=== PATIENT | female | born 1950 | race Caucasian/White ===

== ENCOUNTER → 2017-01-20 | Outpatient (CLI) | payer OTHER ==
[~2017-01-20] MED LIST: FAMOTIDINE20 MG PO; FOSAMAX PO; LEXAPRO PO; SYNTHROID PO; SYNTHROID0.05 MG PO; VOLTAREN75 MG PO
--- NOTE | ~2017-01-20 | BD1 ---
[facility] A Service of [facility] & [facility] RADIOLOGY TEXT RESULTS PATIENT: JOSE CARLOS TALAVERA LOCATION: [facility] : 46 UNIT #: [id number] AGE: [address]: Prince Brito MD SEX: F ORDER DR: [id number] [facility] [address] [place], [place] [address] [id number] O MR#: [id number] Acc #: [id number] NAME: JOSE CARLOS TALAVERA : 1950 SEX: F STUDY DATE/TIME: 01/20/2017 10:34 UNIT: [facility] ROOM: STUDY DESCRIPTION: BD Dexa Bone Dens 1+ Site Attending Physician: Prince Brito Jr., M.D. Ordering Physician: Prince Brito Jr., M.D. Primary Care Physician: Prince Brito Jr., M.D. MEDICAL IMAGING REPORT This report is preliminary unless electronic signature is present EXAM Bone density spine hip, 01/19/2017 HISTORY Osteo. Family history of osteoporosis in mother. Left hip surgery 2015. FINDINGS Bone density scanning performed upper 4 lumbar vertebral segments and proximal right femur. Comparison 02/28/2015. L1-L4: Total bone mineral density 0.643 g/cm2 for T-score 3.7 standard deviations below mean for reference population normal young individuals and Z-score 1.7 standard deviation below mean for age-match population. Compared to 02/28/2014, there has been a 0.9% decrease in bone mineral density in the upper 4 lumbar vertebral segments overall. In the proximal right femur, the total bone mineral density is 0.534 g/cm2 for T-score 3.3 standard deviation below mean for reference population normal young individuals and Z-score 1.9 standard deviations below the mean for age-match population. In right femoral neck specifically, bone mineral density is 0.533 g/cm2 for T-score 2.8 standard deviation below mean for reference population normal young individuals and Z-score 1.1 standard deviations below mean for reference population of age-matched individuals. No prior right proximal femur density scan. IMPRESSION 1. Osteoporosis in the upper 4 lumbar vertebral segments overall. Patient felt to be at significantly increased risk for fracture. Treatment options may be considered. Continued surveillance is recommended. 2. Note made of osteoporosis in the proximal right femur, as well. 3. Please see trending data in body of report above. [facility]. [facility] A Service of [facility] RADIOLOGY TEXT RESULTS PATIENT: JOSE CARLOS TALAVERA [id number] 46 UNIT #: [id number] AGE: [address]: Prince Brito MD SEX: F ORDER DR: Dictated by... Prince Flores M.D. THIS IS AN ELECTRONICALLY VERIFIED REPORT Prince Flores M.D. at 01/21/2017 6:33 PM SUSHANT/nicholas TD: 01/20/2017 23:30 JOB #: [id number] MEDICAL IMAGING REPORT Page 1 of 1 COPY
--- NOTE | ~2017-01-20 | MY11 ---
[facility] A Service of [facility] RADIOLOGY TEXT RESULTS PATIENT: JOSE CARLOS TALAVERA LOCATION: [facility] : 46 UNIT #: [id number] AGE: [address]: Prince Brito MD SEX: F ORDER DR: [id number] [facility] [address] [place], [place] [address] [id number] O MR#: [id number] Acc #: [id number] NAME: JOSE CARLOS TALAVERA : 1950 SEX: F STUDY DATE/TIME: 01/20/2017 10:17 UNIT: [facility] ROOM: STUDY DESCRIPTION: MY Mammogram Screening Dig Ad Attending Physician: Prince Brito Jr., M.D. Ordering Physician: Prince Brito Jr., M.D. Primary Care Physician: Prince Brito Jr., M.D. MEDICAL IMAGING REPORT This report is preliminary unless electronic signature is present EXAM Bilateral digital screening mammogram with CAD INDICATIONS Routine screening. No current complaints. No family history of breast cancer. COMPARISON 02/28/2014. FINDINGS MLO and CC digital views of each breast were obtained and reviewed with an FDA-approved CAD device. There are scattered fibroglandular densities present. There are no masses or abnormal calcifications and there has been no change. IMPRESSION No change no evidence of malignancy. Patients over the age of 40 are entered into a reminder system with target due date for the next mammogram. A result letter will also be sent to the patient. BIRADS: 2, benign findings. Dictated by... Jean Michelle M.D. THIS IS AN ELECTRONICALLY VERIFIED REPORT Jean Michelle M.D. at 01/20/2017 3:57 PM MAX/rnr [facility] A Service [facility] RADIOLOGY TEXT RESULTS PATIENT: JOSE CARLOS TALAVERA LOCATION: [facility] : 46 UNIT #: [id number] AGE: [address]: Prince Brito MD SEX: F ORDER DR: TD: 01/20/2017 15:26 JOB #: [id number] MEDICAL IMAGING REPORT Page 1 of 1 COPY
== END | disposition home or self-care (01) ==
LOC: CWCC 10:00
DX: Z12.31 Encounter for screening mammogram for malignant neoplasm of breast (principal); M81.0 Age-related osteoporosis without current pathological fracture
CPT/HCPCS: 77080; G0202

== ENCOUNTER 2017-02-26 13:09 | Emergency (ER) | payer OTHER ==
--- NOTE | ~2017-02-26 | EKG ---
PATIENT: JOSE CARLOS TALAVERA UNIT #: [id number] Ventricular Rate: 53 BPM Atrial Rate: 53 BPM P-R Interval: 154 ms QRS Duration: 78 ms Q-T Interval: 444 ms QTC Calculation(Bezet): 416 ms P [place]: 47 degrees Calculated R [place]: 13 degrees Calculated T [place]: 45 degrees Diagnosis Line: Sinus bradycardia Diagnosis Line: Otherwise normal ECG Diagnosis Line: When compared with ECG of 25-MAY-2014 05:09, Diagnosis Line: No significant change was found Diagnosis Line: Confirmed by DARCIE CARRASCO MD ([id number]) on Diagnosis Line: 02/26/2017 5:28:44 PM INTERPRETING MD: DANILO ANGEL
--- NOTE | ~2017-02-26 | CR72 ---
[facility] A Service of [facility] & [facility] RADIOLOGY TEXT RESULTS PATIENT: JOSE CARLOS TALAVERA LOCATION: [facility] : 46 UNIT #: [id number] AGE: [address]: Jonh Ivory MD SEX: F ORDER DR: [id number] [facility] [address] [place], [place] [address] [id number] E MR#: [id number] Acc #: [id number] NAME: JOSE CARLOS TALAVERA : 1950 SEX: F STUDY DATE/TIME: 02/26/2017 1337 UNIT: [facility] ROOM: STUDY DESCRIPTION: CR Chest Single View Portable Attending Physician: Jonh Ivory M.D. Ordering Physician: Jonh Ivory M.D. Primary Care Physician: Prince Brito Jr., M.D. MEDICAL IMAGING REPORT This report is preliminary unless electronic signature is present EXAM Chest, portable, 02/26/2017, 1337 hours. CLINICAL HISTORY Shortness of air with neck pain radiating to left arm. History of heart murmur and anxiety. Symptoms began today. COMPARISON Chest x-ray, 01/07/2017. FINDINGS Single portable upright view demonstrates normal heart size with tortuous aorta. Lung volumes are slightly low. There is again demonstrated biapical pleural and parenchymal scarring which is stable. There is perihilar and basilar vascular crowding. There is the appearance of slight increase in the interstitial markings which I believe is likely related to the lower lung volumes. Consider followup two-view chest film. IMPRESSION Lower lung volumes than on 01/07/2017 with persistent biapical pleural and parenchymal scar. There is vascular crowding and mild basilar interstitial prominence which I would favor is simply related to the lower lung volumes. Suggest a followup two-view chest film when possible to exclude developing interstitial change in the lungs. Dictated by... Disha Morales M.D. THIS IS AN ELECTRONICALLY VERIFIED REPORT Disha Morales M.D. at 02/26/2017 5:18 PM SMM/tmw [facility] A Service of [facility] & [facility] RADIOLOGY TEXT RESULTS PATIENT: JOSE CARLOS TALAVERA LOCATION: [facility] : 48 UNIT #: [id number] AGE: [address]: Jonh Ivory MD SEX: F ORDER DR: TD: 02/26/2017 16:49 JOB #: [id number] MEDICAL IMAGING REPORT Page 1 of 1 COPY
--- NOTE | ~2017-02-26 | CT52 ---
[facility] A Service of [facility] & [facility] RADIOLOGY TEXT RESULTS PATIENT: JOSE CARLOS TALAVERA LOCATION: [facility] : 46 UNIT #: [id number] AGE: [address]: Jonh Ivory MD SEX: F ORDER DR: [id number] [facility] [address] [place], [place] [address] [id number] E MR#: [id number] Acc #: [id number] NAME: JOSE CARLOS TALAVERA : 1950 SEX: F STUDY DATE/TIME: 02/26/2017 14:11 UNIT: [facility] ROOM: STUDY DESCRIPTION: CT Cervical Spine Wo Cont Attending Physician: Jonh Ivory M.D. Ordering Physician: Jonh Ivory M.D. Primary Care Physician: Prince Brito Jr., M.D. MEDICAL IMAGING REPORT This report is preliminary unless electronic signature is present EXAM Cervical spine CT. HISTORY Neck pain radiating to the left arm beginning this morning. No known trauma. TECHNIQUE Thin section imaging was obtained from the skull base to the upper thoracic spine and evaluated at bone and soft tissue windows with multiplanar reformats. This CT exam was performed with one or more of the following radiation dose reduction techniques: automatic exposure control, adjustment of mA and/or kV according to patient size, and iterative reconstruction. FINDINGS Alignment is satisfactory. Disc space heights are preserved throughout the cervical spine. There is a small posterior osteophyte at C5-6. It extends to the right uncovertebral joint causing only mild right foraminal narrowing. The other cervical foramina are widely patent. There is moderate right-sided facet arthropathy at C4-5 without significant foraminal narrowing. No fractures or destructive bone lesions are seen. No paraspinous soft tissue masses are noted. There is a suggestion of a left-sided disc herniation on the soft tissue windows at the C6-7 level. This could be better evaluated with MRI. Apical fibrosis is seen bilaterally at the lung apices. No discrete masses are noted. IMPRESSION 1. Multilevel degenerative disc and facet disease as described above. Facet hypertrophy is asymmetrically worse on the right and most prominent at C4-5. 2. Suggestion of a left-sided disc herniation at C6-7. CT without intrathecal contrast is less reliable than MRI and this can be better STS. [facility] A Service of [facility] & [facility] RADIOLOGY TEXT RESULTS PATIENT: JOSE CARLOS TALAVERA LOCATION: [facility] : 46 UNIT #: [id number] AGE: [address]: Jonh Ivory MD SEX: F ORDER DR: evaluated with MRI imaging. This has a potential source for left-sided cervical radicular symptoms. Dictated by... Roger Kumar M.D. THIS IS AN ELECTRONICALLY VERIFIED REPORT Roger Kumar M.D. at 02/27/2017 11:22 AM ROOSEVELT/juan TD: 02/26/2017 17:58 JOB #: [id number] MEDICAL IMAGING REPORT Page 1 of 1 COPY
[2017-02-26 13:56] LABS: BASOPHIL# 0.1 X10e3 (0-0.3); DIFF IND NO; EOSINOPHIL# 0.1 X10e3 (0-0.7); HEMATOCRIT 42.7 % (35.0-45.0); HEMOGLOBIN 14.2 gm/dL (12.0-16.0); LYMPHOCYTE# 2.8 X10e3 (1.0-3.5); LYMPHOCYTE% 36.8 % (17.0-45.0); MEAN CORPUSCULAR HEMOGLOBIN 30.9 PG (28-34); MEAN CORPUSCULAR HGB CONC 33.2 g/dL (30-36); MEAN PLATELET VOLUME 8.5 FL (6.5-11.5); MONOCYTE# 0.7 X10e3 (0-1.0); MONOCYTE% 9.3 % (3.0-12.0); NEUTROPHIL# 3.9 X10e3 (1.5-7.1); NEUTROPHIL% 51.9 % (40-75); PLATELET COUNT 267 X10e3 (140-420); RED BLOOD COUNT 4.59 X10e (3.90-5.30); RED CELL DISTRIBUTION WIDTH 14.6 % (11.0-15.5); WHITE BLOOD COUNT 7.5 X10e3 (4.0-10.5)
[2017-02-26 14:00] LABS: POC - CKMB <1.0 ng/mL (0.0-7.9); POC - TROPONIN <0.05 ng/mL (<=0.05)
[2017-02-26 14:18] LABS: ALBUMIN SERUM 4.1 g/dL (3.5-5.0); BILIRUBIN, DIRECT 0.1 mg/dL (0.0-0.2); BILIRUBIN,INDIRECT 0.4 mg/dL (0.0-0.9); BILIRUBIN,TOTAL 0.5 mg/dL (0.2-2.0); CALCIUM SERUM 9.1 mg/dL (8.4-10.2); CREATININE SERUM 0.6 mg/dL (0.6-1.4); GLOM FILT RATE Estimated 93.7 mL/min (>60); POTASSIUM 4.2 mmol/L (3.5-5.1); PROTEIN TOTAL SERUM 7.5 g/dL (6.0-8.3)
== END 2017-02-26 16:13 | disposition home or self-care (01) ==
LOC: CED 13:09
PROVIDERS: Emergency Medicine
DX: M50.10 Cervical disc disorder with radiculopathy, unspecified cervical region (principal); F41.8 Other specified anxiety disorders; E03.9 Hypothyroidism, unspecified; F17.210 Nicotine dependence, cigarettes, uncomplicated
CPT/HCPCS: 36415; 71010; 72125; 80048; 80076; 82553; 84484; 85025; 93005; 99284